=== PATIENT | female | born 1945 | race Native Hawaiian/Other Pacific Islander ===

== ENCOUNTER 2023-01-01 11:42 | Outpatient (CLI) | payer OTHER, MEDICARE | END 2023-01-01 19:12 | disposition home or self-care (01) | LOC: MAMMO 11:42 | PROVIDERS: ATTEND Internal Medicine | DX: Z12.31 Encounter for screening mammogram for malignant neoplasm of breast (principal) ==

== ENCOUNTER 2023-02-01 09:37 | Outpatient (CLI) | payer OTHER, MEDICARE | END 2023-02-01 21:52 | disposition home or self-care (01) | LOC: US 09:37 | PROVIDERS: ATTEND Internal Medicine | DX: E03.8 Other specified hypothyroidism (principal) ==

== ENCOUNTER 2023-03-16 09:51 | Outpatient (CLI) | payer OTHER, MEDICARE | END 2023-03-16 18:57 | disposition home or self-care (01) | LOC: RAD 09:51 | PROVIDERS: ATTEND Internal Medicine Rheumatology | DX: M06.4 Inflammatory polyarthropathy (principal); M16.12 Unilateral primary osteoarthritis, left hip; R06.02 Shortness of breath; Z78.0 Asymptomatic menopausal state ==